=== PATIENT | male | born 1970 | race Caucasian/White ===

== ENCOUNTER 2025-03-31 01:09 | Inpatient (IN) | payer OTHER, SELFPAY ==
[2025-03-30 17:55] VITALS: BP 138/96
[2025-03-30 18:18] LABS: % Basophils 0.4 % (0-2); % Eosinophils 2.3 % (0-6); % Immature Granulocytes 0.4 % (0-0.5); % Lymphocytes 13.5 % (20.5-51.1); % Monocytes 9.3 % (1.7-9.3); % Neutrophils 74.1 % (42.2-75.2); Absolute Basophils 0.1 10^3/uL (0-0.2); Absolute Eosinophils 0.4 10^3/uL (0-0.7); Absolute Immature Granulocytes 0.1 10^3/uL (0-0.05); Absolute Lymphocytes 2.2 10^3/uL (1.2-3.4); Absolute Monocytes 1.5 10^3/uL (0.1-0.6); Absolute Neutrophils 12.1 10^3/uL (1.4-6.5); Hematocrit 41.8 % (39.0-52.0); Hemoglobin 14.4 g/dL (13.0-18.0); Mean Corp Hgb Conc. 34.4 g/dL (33.0-37.0); Mean Corpuscular Hgb 31.2 pg (27.0-31.0); Mean Corpuscular Volume 90.5 fL (80.0-94.0); Mean Platelet Volume 9.6 fL (7.4-10.4); Nucleated Red Blood Cells % 0 % (-); Platelet Count 345 10^3/uL (130-400); Red Blood Cell Count 4.62 10^6/uL (4.70-6.10); Red Cell Dist. Width 12.4 % (11.5-14.5); White Blood Cell Count 16.3 10^3/uL (4.8-10.8)
[2025-03-30 18:30] LABS: ALT (SGPT) 21 U/L (0-50); AST (SGOT) 21 U/L (17-59); Albumin 4.4 g/dl (3.5-5.0); Alkaline Phosphatase 47 U/L (38-126); Blood Urea Nitrogen 14 mg/dl (9-20); Calcium 9.6 mg/dl (8.4-10.2); Carbon Dioxide 29 mmol/L (22-30); Chloride 102 mmol/L (98-107); Glucose 104 mg/dl (70-99); Potassium 4.3 mmol/L (3.5-5.1); Sodium 140 mmol/L (135-145); Total Protein 7.2 g/dl (6.3-8.2); eGFR > 60.00
[2025-03-30 18:31] LABS: Lipase 158 U/L (23-300)
[2025-03-30 21:23] LABS: Urine Albumin 1+ (Neg - Trace); Urine Bilirubin Negative (Negative); Urine Character Slightly Cloudy (Clear); Urine Color Yellow; Urine Glucose Negative (Negative); Urine Ketone Negative (Negative); Urine Leukocyte Negative (Negative); Urine Nitrite Negative (Negative); Urine Occult Blood 3+ (Negative); Urine Specific Gravity 1.025 (<1.030); Urine Urobilinogen 1+ (Neg - 1+)
[2025-03-30 21:38] LABS: Urine Mucus Moderate
[2025-03-30 21:40] LABS: Urine Bacteria Few (Negative)
[2025-03-30 21:49] LABS: Lactic Acid 0.9 mmol/L (0.7-2.0)
--- NOTE | 2025-03-30 22:31 | ED.GENMED ---
History of Present Illness
General
Chief Complaint: Abdominal Pain
Source: patient and family
Exam Limitations: none
Time Seen by Provider: 03/30/25 22:13
History of Present Illness
History of Present Illness:
54-year-old male presents with 2 days of abdominal pain. States pain has been periumbilical. States the pain is just persisted and earlier he vomited. Also had a temperature at home at 99. Patient states the pain is just persistent and seems a
little worse toward the right side. Also reports it does radiate around bilateral flanks. No dysuria. No hematuria. Does admit to nausea.
Past History
Past History
ED Past Medical History: HTN and Psychiatric
ED Past Surgical History: Cholecystectomy and Orthopedic
Social History
Tobacco: Smoker
Alcohol: Occasional
Drug: None
Personal: Single
Living: alone
Employment: Not employed
Family History
Family History: Hypertension
Phy Exam
Physical Exam
Physical Exam:
CONSTITUTIONAL Patient alert and oriented to person, place and time. Well-appearing. Vital signs reviewed.
HEAD atraumatic, normocephalic.
EYES eyelids normal to inspection, Extraocular muscles intact, Conjunctiva normal, Sclera normal.
NECK normal range of motion, Trachea midline, no jugular venous distention.
RESPIRATORY CHEST No respiratory distress noted, Chest expansion equal
ABDOMEN moderate right lower quadrant tenderness, mild periumbilical tenderness
BACK normal inspection, no obvious deformities
UPPER EXTREMITY range of motion normal, Motor strength normal, no cyanosis, no edema.
LOWER EXTREMITY range of motion normal, Motor strength normal, no cyanosis, no edema.
NEURO Speech normal, No focal motor deficits, Ramsey coma scale 15, Memory normal, Cranial Nerves intact to screening exam.
SKIN skin warm, dry, and normal in color.
Course
Orders/Labs/Results
Orders:
Orders
03/30/25 18:01
IV Insert/Care/Rem.- Treatment PRN
Straight cath- Treatment ONCE
03/30/25 18:05
Complete Blood Count/With Diff Urgent
Comprehensive Metabolic Panel Urgent
Lipase Urgent
03/30/25 21:13
Urinalysis Reflex To Culture Urgent
Date Specimen was Collected: 03/30/25
Time Specimen was Collected: 18:01
Urine Microscopic Reflex Cult Urgent
03/30/25 21:16
CT Abd/Pel (IV only)-DH only Urgent
Comment:
Reason For Exam: abd and flank pain
03/30/25 21:30
Lactic Acid Urgent
03/30/25 22:27
Morphine Sulfate 4 mg IV NOW STA
Ondansetron Injectable [Zofran] 4 mg IV NOW STA
03/30/25 22:28
0.9% Sodium Chloride 1000 ml [Nss] 1,000 ml IV BOLUS
03/30/25 23:28
Zosyn 4.5 grams IVPB NOW Piperacillin/Tazo 4.5 Gram [Zosyn] 4.5 gram in 100 ml IV NOW
Abnormal Lab Results
03/30/25 03/30/25
18:05 21:13
WBC 16.3 H 10^3/uL
(4.8-10.8)
RBC 4.62 L 10^6/uL
(4.70-6.10)
MCH 31.2 H pg
(27.0-31.0)
Abs Immat Gran (auto) 0.1 H 10^3/uL
(0-0.05)
Absolute Neuts (auto) 12.1 H 10^3/uL
(1.4-6.5)
Absolute Monos (auto) 1.5 H 10^3/uL
(0.1-0.6)
Lymphocytes % 13.5 L %
(20.5-51.1)
Glucose 104 H mg/dl
(70-99)
Ur Occult Blood Reflex 3+ A
(Negative)
Urine RBC 7-10 A /HPF
(0-2)
Urine Bacteria (Reflex) Few A
(Negative)
Urine Albumin (Reflex) 1+ A
(Neg - Trace)
03/30/25 18:05
03/30/25 18:05
Vital Signs
Initial and Last Documented VS:
Initial Vital Signs
Temp Pulse Resp BP Pulse Ox
99.4 F 96 18 138/96 96
03/30/25 17:55 03/30/25 17:55 03/30/25 17:55 03/30/25 17:55 03/30/25 17:55
Last Documented Vital Signs
Temp Pulse Resp BP Pulse Ox
99.4 F 96 18 138/96 96
03/30/25 17:55 03/30/25 17:55 03/30/25 17:55 03/30/25 17:55 03/30/25 17:55
MDM/Problems Addressed
Differential Diagnosis Includes:
Diverticulitis, colitis, appendicitis, duodenitis, AAA
*Radiology
Radiology exam reviewed: preliminary read by ED provider (Severe labs are changed to the recall with suspected extraluminal air) and radiology read reviewed
*Pulse Oximetry
Patient hypoxic: no
*Critical Care Note
Total Time (30-74mins, 75-104mins- exclusive of procedures): Not Applicable
Data Reviewed
Source: patient and significant other
Patient Management
Discussion with other providers: Hospitalist
Escalation/DeEscalation of care consider admission/obs:
52-year-old male with abdominal pain. Found to have leukocytosis, low-grade fever and severe colitis with microperforation. Question whether this could be diverticular in nature. IV antibiotics. Admit
ED Attending Note
-
Portions of this chart may have been created with voice recognition software.� Occasional wrong word or��sound alike� substitutions may have occurred due to the inherent limitations of voice recognition software.
Discharge Plan
Departure
Patient Disposition: Admit
Date of Disposition: 03/30/25
Time of Disposition: 23:29
Admit to: Med/Surg
Presentation/result/management discussed w/ accepting MD/DO: Hospitalist
Discharge Problem:
Colitis, Perforated abdominal viscus
Prescriptions:
No Action
hydrocortisone acetate 25 MG suppository
25 mg SC BID Qty: 10 0RF
hydrocortisone 1 APPLIC cream
1 applic topical Q6H Qty: 15 0RF
Zantac 75 Tab
1 tab PO DAILY
hydrocodone-acetaminophen 1 TABLET tablet
1 tab PO Q4HPRN PRN (Reason: pain) Qty: 15 0RF
ondansetron 4 MG tablet,disintegrating
4 mg PO TIDPRN PRN (Reason: nausea/vomiting) Qty: 6 0RF
meclizine 25 MG tablet
25 mg PO Q8HPRN PRN (Reason: dizziness) Qty: 10 0RF
Referrals:
Jeff Hernandez DO [Family Provider] -
Interventions
Interventions:
*Risk Screen - Suicide Last Done: 03/30/25 17:55
*General Assessment Last Done: 03/30/25 21:02
*Neglect/Abuse Screening Last Done: 03/30/25 21:02
*ED- Fall Risk Assessment Last Done: 03/30/25 17:55
*ED COVID-19 Vaccine History Last Done: 03/30/25 17:55
Discharge Date and Time
Print Language: KINYARWANDA
[2025-03-30] MEDS: ZOFRAN 4 MG IV (23:16)
[2025-03-30] MEDS: MORPHINE SULFATE 4 MG IV (23:16)
[2025-03-30] MEDS: NSS 1000 IV (23:17)
[2025-03-30 23:24] VITALS: BP 128/81
[2025-03-31] VITALS (10 sets, daily range): BP systolic 107–142; BP diastolic 79–109; BMI 30.1; BMI 29.8
[2025-03-31] MEDS: ZOSYN 100 IV (00:17)
[2025-03-31] MEDS: FLUSH (NSS) 1 FLUSH IV (00:20)
--- NOTE | 2025-03-31 00:40 | HPS.HSE ---
Family Physician
-
Family Physician: Jeff Hernandez DO
Chief Complaint
-
Abdominal pain
History of Present Illness
This is a 54-year-old with past medical history of gallstones and irritable bowel syndrome status post cholecystectomy who presents to the emergency department with 3 days of intractable abdominal pain with associated GI symptoms.
Patient reports onset of colicky abdominal pain that he described as generally diffuse and nonradiating. It is associated with some nausea and ultimately developed into an episode of bilious emesis. Reports intermittent constipation and diarrhea.
Initially felt that this could be secondary to food poisoning and took some antacids and [id number]-[id number] medications without any significant improvement. Due to the emesis and continued pain was found to come to the emergency department by spouse.
He denies any melena. He denies any hematochezia. He denies having any fevers or chills. He has no recent travel. Denies any recent hospitalizations and denies any recent sick contacts.
In the emergency department the patient was afebrile, blood pressure was 127/90 with pulse of 76 satting 99% on room air. Tmax was 99.4.
She had a white count of 16.3, hemoglobin and platelets were normal. Electrolytes were normal. BUN/creatinine were normal.
UA was unremarkable.
CT of the abdomen pelvis shows severe acute colitis of the ascending colon with microperforation. Differential includes acute diverticulitis.
Medical History
Past Medical History
Past Medical History: Reports HTN, Hypercholesterolemia and Other (Irritable bowel syndrome, nephrolithiasis, dumping syndrome status post cholecystectomy)
Past Surgical History: Reports Cholecystectomy
Social History
Tobacco: Non-smoker
Alcohol: None
Drug: None
Personal:
Living: With Family
Family History
Family History: Not pertinent
Allergies / Home Medications
Allergies reflects when Allergies were last updated in [facility].
Home Medications with original date entered in [facility]
Allergy/Medication List:
Allergies
Allergy/AdvReac Type Severity Reaction Status Date / Time
No Known Allergies Allergy Verified 09/11/20 14:01
Home Medications
Finasteride 5 MG 1 tablet Orally Once a day for 90 days Active
Garlic 200 MG as directed Orally Active
Colestipol HCl 1 GM take 2 tablets by mouth twice a day for 30 Active
Centrum Silver 50+Men - as directed Orally Active
Review of Systems
-
History Source: Patient
Constitutional: Reports No Symptoms
EENT: Reports No Symptoms
Respiratory: Reports No Symptoms
Cardiac: Reports No Symptoms
Abdomen/GI: Reports Abdominal Pain
: Reports No Symptoms
Musculoskeletal: Reports No Symptoms
Skin: Reports No Symptoms
Neurological: Reports No Symptoms
Endocrine: Reports No Symptoms
Hematologic/Lymphatic: Reports No Symptoms
Psych: Reports No Symptoms
Physical Exam
Vital Signs
Vital Signs
Temp Pulse Resp BP Pulse Ox
99.4 F 76 21 137/90 98
03/30/25 17:55 03/31/25 00:00 03/31/25 00:00 03/31/25 00:00 03/31/25 00:00
Physical Exam
General: Well Developed, Well Nourished and Conversant
HEENT: NormoCephalic, Anicteric, Moist mucous membranes and Atraumatic
Respiratory: Clear
Cardiac: S1/S2 and Regular Rhythm
GI: Soft, Non Distended, Normal Bowel Sounds and Tender
Rectal: Deferred by Provider
Genito-urinary: Deferred by me
Musculoskeletal: No Clubbing, No Cyanosis and No Edema
Skin: Warm
Neuro: AO x 3 and Nonfocal/grossly intact
Hematologic/Lymphatic: No Lymphadenopathy
Psych: Calm
Laboratory Results
-
03/30/25 18:05
03/30/25 18:05
Laboratory Results
Lactic Acid 0.9 mmol/L (0.7-2.0) 03/30/25 21:30
Total Bilirubin 1.0 mg/dl (0.2-1.3) 03/30/25 18:05
AST 21 U/L (17-59) 03/30/25 18:05
ALT 21 U/L (0-50) 03/30/25 18:05
Alkaline Phosphatase 47 U/L (38-126) 03/30/25 18:05
Lipase 158 U/L (23-300) 03/30/25 18:05
Data Reviewed
-
CT Scan: Report Reviewed by me
Lab Data: Labs Reviewed by me
Old Records: Reviewed
Impression/Plan
-
IMPRESSION:
54-year-old with acute abdominal pain, found to have leukocytosis peripherally as well as likely diverticulitis of the ascending colon with microperforation. No abscess. No free fluid and no intra-abdominal free air. Hemodynamically stable.
Nontoxic-appearing.
PLAN:
Colitis/Diverticulitis - Complicated by microperforation but otherwise stable. Patient w/o risk factors for resistant organisms.
- admit to med/surg
- npo for now
- pain control and antiemetics
- IV ceftriaxone/flagyl
- serial examinations
- no indication for surgery at this time.
DVT PPX - heparin sq
Code status - Full Code
[2025-03-31] MEDS: TORADOL 15 MG IV (02:02)
[2025-03-31] MEDS: FLAGYL 500 MG 100 IV ×3 (06:20→22:07)
[2025-03-31] MEDS: STERILE WATER FOR INJECTION 20 ML IV (06:21)
[2025-03-31] MEDS: ROCEPHIN 2000 MG IV (06:21)
[2025-03-31] MEDS: D5LR 1000 IV (06:28)
[2025-03-31 06:44] LABS: Hematocrit 39.7 % (39.0-52.0); Hemoglobin 13.6 g/dL (13.0-18.0); Mean Corp Hgb Conc. 34.3 g/dL (33.0-37.0); Mean Corpuscular Hgb 31.6 pg (27.0-31.0); Mean Corpuscular Volume 92.3 fL (80.0-94.0); Mean Platelet Volume 9.6 fL (7.4-10.4); Platelet Count 323 10^3/uL (130-400); Red Cell Dist. Width 12.6 % (11.5-14.5); White Blood Cell Count 13.3 10^3/uL (4.8-10.8)
[2025-03-31 07:00] LABS: Blood Urea Nitrogen 15 mg/dl (9-20); Carbon Dioxide 29 mmol/L (22-30); Chloride 104 mmol/L (98-107); Estimated Creatinine Clearance 91 ml/min; Glucose 106 mg/dl (70-99); Sodium 142 mmol/L (135-145); eGFR > 60.00
[2025-03-31] MEDS: PROSCAR 5 MG PO (07:58)
[2025-03-31] MEDS: ZOFRAN 4 MG IV (08:03)
[2025-03-31] MEDS: MORPHINE SULFATE 2 MG IV ×3 (08:04→18:06)
--- NOTE | 2025-03-31 08:19 | W.PN.HOSP.TC ---
Today's Communication/Plan
-
see A/P
Assessment / Plan
Assessment / Plan
HPI: 54-year-old with past medical history of gallstones status post cholecystectomy and irritable bowel syndrome who presented to the emergency department with 3 days of intractable abdominal pain with associated GI symptoms.
Patient reports onset of colicky abdominal pain that he described as generally diffuse and nonradiating. It is associated with some nausea and ultimately developed into an episode of bilious emesis. Reports intermittent constipation and diarrhea.
Initially felt that this could be secondary to food poisoning and took some antacids and uxox-zhc-ymyoqcu medications without any significant improvement.
He denies any melena/hematochezia. He denies having any fevers or chills. He has no recent travel. Denies any recent hospitalizations and denies any recent sick contacts.
CT of the abdomen pelvis shows severe acute colitis of the ascending colon with microperforation. Differential includes acute diverticulitis.
A/P:
# Acute ascending colitis/Diverticulitis with microperforation
NPO for now with IVF support
pain control and antiemetics
Cont IV ceftriaxone/flagyl
IV PPI for GI ppx
CRS CS
Recc C scope in 4-6 weeks, pt informed
# history of gallstones
# status post cholecystectomy
# irritable bowel syndrome
DVT PPX - lovenox SQ
Code status - Full Code
Anticipated Discharge: 24 - 48 hours
Subjective/Interval History
-
Date of Service: March 31, 2025
Objective Data
-
Labs:
Laboratory Results
03/31/25
06:36
WBC 13.3 H
Hgb 13.6
Hct 39.7
Plt Count 323
Sodium 142
Potassium 5.0
Chloride 104
Carbon Dioxide 29
BUN 15
Creatinine 1.0
Glucose 106 H
Calcium 9.0
Vital Signs:
Vital Signs
Temp Pulse Resp BP Pulse Ox
37.4 C 62 18 119/80 98
03/30/25 17:55 03/31/25 08:12 03/31/25 08:12 03/31/25 08:12 03/31/25 08:12
Review of Systems
-
Abdomen/GI: Reports Abdominal Pain (improved)
Physical Exam
-
General: Well Developed, Well Nourished, No Apparent Distress, Comfortable and Conversant; Negative Respiratory Distress
HEENT: Normocephalic, Atraumatic, Nose Appears Normal and Ears Appear Normal; Negative Oxygen
Respiratory: Clear to Auscultation and Non Labored Respirations; Negative Accessory Resp Muscle Use
Cardiac: Regular Rhythm and S1/S2
GI: Soft, Nontender, Nondistended and Normal Bowel Sounds (diminished)
Skin: Warm and Dry
Neuro: Awake, Alert, Oriented and AO x 3
Psych: Calm and Intact Judgement/Insight
Data Reviewed
-
CT Scan: Report Reviewed by me
Labs: Labs Reviewed by me
[2025-03-31] MEDS: PROTONIX IV 40 MG IV (09:44)
--- NOTE | 2025-03-31 14:03 | CON.CRS ---
Consultation
-
Date/Time Consultation Performed: 03/31/25 1145
Medical History
-
Chief Complaint: abdominal pain
History of Present Illness:
Mr Olvera is a 54 yo male with a h/o HLD and cholecystectomy who presents with 4 days of lower abdominal pain. He notes that his pain began on Wednesday and has gradually worsened since that time. Yesterday, it became quite severe and was
accompanied by nausea and vomiting causing him to present through the ED at the urging of his spouse. He reports several episodes of diarrhea and well as bilious emesis. He denies fevers or chills. He denies voiding changes.
Past Medical History
Past Medical History: Hypercholesterolemia and Other (BPH)
Past Surgical History: Cholecystectomy and Other (colonoscopy 5 years ago with reported polyp and internal hemorrhoids)
Social History
Tobacco: Non-Smoker
Alcohol: Occasional
Personal:
Living: With Family
Employment: Employed
Family History
Family History: Reviewed & Not Pertinent
Allergies / Home Medications
Allergy/AdvReac Type Severity Reaction Status Date / Time
No Known Allergies Allergy Verified 09/11/20 14:01
�Medication �Instructions �Recorded �Confirmed �Type
Zantac 75 1 tab PO DAILY 11/19/15 11/19/15 History
hydrocodone 5 mg-acetaminophen 325 1 tab PO Q4HPRN PRN pain #15 tabs 11/19/15 Rx
mg tablet
hydrocortisone 2.5 % topical cream 1 applic topical Q6H ##15 11/19/15 Rx
hydrocortisone acetate 25 mg 25 mg LA BID #10 supp 11/19/15 Rx
rectal suppository
meclizine 25 mg tablet 25 mg PO Q8HPRN PRN dizziness #10 09/11/20 Rx
tabs
ondansetron 4 mg disintegrating 4 mg PO TIDPRN PRN nausea/vomiting 09/11/20 Rx
tablet #6 tabs
Review of Systems
-
History Source: Patient
All other systems: Negative unless noted
A 10 point review of systems was completed, and was negative except as per HPI.
Physical Exam
Vital Signs
Temp 99.4 F 03/30/25 17:55
Pulse 62 03/31/25 08:12
Resp Rate 18 03/31/25 08:12
Blood pressure 119/80 03/31/25 08:12
SaO2 98 03/31/25 08:12
03/30/25 03/31/25 04/01/25
06:59 06:59 06:59
Actual Weight 86.9 kg
Body Mass Index (BMI) 30.1
Lab Results / Allergies
03/31/25 06:36
03/31/25 06:36
WBC 13.3 10^3/uL (4.8-10.8) H 03/31/25 06:36
Hgb 13.6 g/dL (13.0-18.0) 03/31/25 06:36
Hct 39.7 % (39.0-52.0) 03/31/25 06:36
Plt Count 323 10^3/uL (130-400) 03/31/25 06:36
Abs Immat Gran (auto) 0.1 10^3/uL (0-0.05) H 03/30/25 18:05
Neutrophils % 74.1 % (42.2-75.2) 03/30/25 18:05
Allergy/AdvReac Type Severity Reaction Status Date / Time
No Known Allergies Allergy Verified 09/11/20 14:01
Physical Exam
General: Well Developed and Well Nourished
HEENT: Moist Mucous Membranes
Respiratory: Non Labored Respirations
GI: Soft, Non Distended, Tender (right hemiabdomen) and Obese
Skin: Warm and Dry
Neuro: Awake, Alert and AO x 3
Psych: Calm
Data Reviewed
-
CT Scan: Image Personally Visualized and interpreted, Report Reviewed by me, Discussed with Physician and Discussed with Patient
Labs: Labs Reviewed by me, Discussed with Physician and Discussed with Patient
Assessment / Plan
-
54 yo male presenting with abd pain x4 days with progressive worsening and development of n/v/d. Afebrile. VSS. Leukocytosis present on admission of 16.3 now trended down to 13.3. Reports last colonoscopy was 5 years ago with polyp/hemorroids. No
h/o IBD. CT imaging from this presentation reviewed with suspected diverticulitis with microperforation vs colitis (?infectious) to the ascending colon. No abscess.
--NPO this am, ok for CLD for dinner
--Will check stool cultures and c-diff
--Continue IV abx (ceftriaxone/flagyl)
--Continue IVF
--Analgesics prn
--VTE ppx with heparin SQ
No plans for emergent surgery at this time, will follow expectantly with nonoperative measures for improvement. May require operative intervention if condition worsens. Surgery to follow.
[2025-03-31] MEDS: NSS (PRESERVATIVE FREE) IV (14:09)
[2025-03-31] MEDS: D5LR IV (15:33)
--- NOTE | 2025-03-31 15:43 | PTCARENOTE ---
rec'd pt from ER. pt ambulated from stretcher to bed. Denies pain at this time. D5LR infusing at 100ml/hr as ordered. Oriented to unit. Call bloom in reach.
[2025-03-31] MEDS: LOVENOX 40 MG SC (18:04)
[2025-04-01] MEDS: D5LR 1000 IV (00:52)
[2025-04-01] MEDS: ROCEPHIN 2000 MG IV (05:44)
[2025-04-01] MEDS: STERILE WATER FOR INJECTION 20 ML IV (05:44)
[2025-04-01] MEDS: FLAGYL 500 MG 100 IV (05:45)
[2025-04-01 07:00] VITALS: BP 137/89
[2025-04-01] MEDS: PROTONIX IV 40 MG IV (07:32)
[2025-04-01] MEDS: NSS (PRESERVATIVE FREE) 10 ML IV (07:32)
[2025-04-01] MEDS: PROSCAR 5 MG PO (07:34)
[2025-04-01 07:46] LABS: % Basophils 0.8 % (0-2); % Eosinophils 8.3 % (0-6); % Immature Granulocytes 0.3 % (0-0.5); % Lymphocytes 21.9 % (20.5-51.1); % Monocytes 9.2 % (1.7-9.3); % Neutrophils 59.5 % (42.2-75.2); Absolute Basophils 0.1 10^3/uL (0-0.2); Absolute Eosinophils 0.7 10^3/uL (0-0.7); Absolute Lymphocytes 1.7 10^3/uL (1.2-3.4); Absolute Monocytes 0.7 10^3/uL (0.1-0.6); Absolute Neutrophils 4.7 10^3/uL (1.4-6.5); Hematocrit 37.9 % (39.0-52.0); Hemoglobin 13.3 g/dL (13.0-18.0); Mean Corp Hgb Conc. 35.1 g/dL (33.0-37.0); Mean Corpuscular Hgb 31.5 pg (27.0-31.0); Mean Corpuscular Volume 89.8 fL (80.0-94.0); Mean Platelet Volume 9.7 fL (7.4-10.4); Nucleated Red Blood Cells % 0 % (-); Platelet Count 351 10^3/uL (130-400); Red Blood Cell Count 4.22 10^6/uL (4.70-6.10); Red Cell Dist. Width 12.2 % (11.5-14.5); White Blood Cell Count 7.9 10^3/uL (4.8-10.8)
[2025-04-01 08:42] LABS: Blood Urea Nitrogen 8 mg/dl (9-20); Carbon Dioxide 29 mmol/L (22-30); Chloride 105 mmol/L (98-107); Estimated Creatinine Clearance 101 ml/min; Glucose 104 mg/dl (70-99); Magnesium 2.1 mg/dl (1.6-2.3); Potassium 4.2 mmol/L (3.5-5.1); Sodium 138 mmol/L (135-145); eGFR > 60.00
[2025-04-01] MEDS: D5LR IV (10:54)
--- NOTE | 2025-04-01 11:03 | W.PN.CRS1 ---
Addendum entered and electronically signed by Oniel Galarza MD 04/01/25 17:08:
I saw and examined the patient.
The SKIRT PANEL ASSEMBLER's note was reviewed and I agree with the note.
Original Note:
Today's Communication / Plan
-
Advance diet, dispo planning
Assessment/Plan
-
54 yo male presenting with right-sided colitis, most consistent with diverticulitis with microperforation
Afebrile, VSS
Leukocytosis resolved, CRP trending down
Tolerating liquids
Pain nearly resolved, minimal tenderness
--Advance to regular diet
--Analgesics prn
--Continue with ABX, transition to PO upon dc
Ok for d/c from surgical standpoint if tolerating regular diet
Subjective Data
Subjective Data
Date of Service: April 01, 2025
Patient seen and examined at bedside with Dr. Galarza. Denies n/v. Tolerating liquids. Pain much improved, nearly resolved. Passed a soft, normal stool.
Objective Data
-
Vital Signs
Temp Pulse Resp BP Pulse Ox
97.9 F 69 16 137/89 97
04/01/25 07:00 04/01/25 07:00 04/01/25 07:00 04/01/25 07:00 04/01/25 07:00
Intake & Output
03/31/25 04/01/25 04/02/25
06:59 06:59 06:59
Intake Total 1800 / 1800
Output Total 300 / 300
Balance 1500 / 1500
Intake:
Oral fluids 600 / 600
IV fluids (Total) 1000 / 1000
IV piggybacks 200 / 200
Output:
Urine, Voided 300 / 300
Other:
Number of approximated MODERATE 1
amounts of urine
Lab Results
04/01/25 07:03
04/01/25 07:03
Physical Exam
-
General: No Acute Distress
Abdomen: Soft, Non Distended and Tender (mild to right mid to upper abd)
Skin: Warm and Dry
--- NOTE | 2025-04-01 12:56 | W.PN.HOSP.TC ---
Addendum entered and electronically signed by Michelle Caballero MD 04/01/25 14:18:
total DC time 36 min
Original Note:
Today's Communication/Plan
-
DC today
Assessment / Plan
Assessment / Plan
HPI: 54-year-old with past medical history of gallstones status post cholecystectomy and irritable bowel syndrome who presented to the emergency department with 3 days of intractable abdominal pain with associated GI symptoms.
Patient reports onset of colicky abdominal pain that he described as generally diffuse and nonradiating. It is associated with some nausea and ultimately developed into an episode of bilious emesis. Reports intermittent constipation and diarrhea.
Initially felt that this could be secondary to food poisoning and took some antacids and yrsx-sil-bmbddcq medications without any significant improvement.
He denies any melena/hematochezia. He denies having any fevers or chills. He has no recent travel. Denies any recent hospitalizations and denies any recent sick contacts.
CT of the abdomen pelvis shows severe acute colitis of the ascending colon with microperforation. Differential includes acute diverticulitis.
A/P:
# Acute ascending colitis/Diverticulitis with microperforation
restarted diet and tolerated solid food
IV ceftriaxone/flagyl -> Levaquin and Flagyl 5 more days
appreciate CRS input
Recc C scope in 4-6 weeks, pt informed
# history of gallstones
# status post cholecystectomy
# irritable bowel syndrome
DVT PPX - lovenox SQ
Code status - Full Code
DW RN
Anticipated Discharge: Today
Subjective/Interval History
-
Date of Service: April 01, 2025
Objective Data
-
Labs:
Laboratory Results
04/01/25
07:03
WBC 7.9
Hgb 13.3
Hct 37.9 L
Plt Count 351
Sodium 138
Potassium 4.2
Chloride 105
Carbon Dioxide 29
BUN 8 L
Creatinine 0.9
Glucose 104 H
Calcium 9.0
Vital Signs:
Vital Signs
Temp Pulse Resp BP Pulse Ox
36.6 C 69 16 137/89 97
04/01/25 07:00 04/01/25 07:00 04/01/25 07:00 04/01/25 07:00 04/01/25 07:00
I&O
03/31/25 04/01/25 04/02/25
06:59 06:59 06:59
Intake Total 1800 / 1800
Output Total 300 / 300
Balance 1500 / 1500
Review of Systems
-
Abdomen/GI: Reports Abdominal Pain (resolved )
Physical Exam
-
General: Well Developed, Well Nourished, No Apparent Distress, Comfortable and Conversant; Negative Respiratory Distress
HEENT: Normocephalic, Atraumatic, Nose Appears Normal and Ears Appear Normal; Negative Oxygen
Respiratory: Clear to Auscultation and Non Labored Respirations; Negative Accessory Resp Muscle Use
Cardiac: Regular Rhythm and S1/S2
GI: Soft, Nontender, Nondistended and Normal Bowel Sounds
Skin: Warm and Dry
Neuro: Awake, Alert, Oriented and AO x 3
Psych: Calm and Intact Judgement/Insight
Data Reviewed
-
CT Scan: Report Reviewed by me
Labs: Labs Reviewed by me
[2025-04-01 13:00] VITALS: BP 143/89
--- NOTE | 2025-04-01 13:39 | CM ---
CM reviewed chart, reviewed with nursing, patient for discharge, plan home no needs.
Plan; home no needs.
--- NOTE | 2025-04-01 14:08 | W.DCSUMMARY ---
Discharge Summary
Discharge Data
Date of Admission: 03/31/25
Date of Discharge: 04/01/25
-
Pending Results: No
Hospital Course
Principal Diagnosis:
Acute ascending colitis/Diverticulitis with microperforation
Chronic Diagnoses:�
History of gallstones
Status post cholecystectomy
Irritable bowel syndrome
Consultations:�
Colorectal surgery
Procedures:�
None
Clinical course:�
This is a 54-year-old with past medical history as stated above, who presented with abdominal pain, some nausea and one episode of bilious emesis.
Problem 1:
Acute ascending colitis/Diverticulitis with microperforation.
He was initially made n.p.o., but diet was slowly added back.
He was able to tolerate solid food prior to discharge which he can continue going forward.
The patient received IV antibiotics Flagyl and ceftriaxone while in the hospital, and he was discharged with Levaquin and Flagyl for 5 more days (total 7 days).
He can follow up with colorectal surgery service outpatient for C-scope in 4 to 6 weeks.
As for the rest of his medical problems, they were stable during his hospital stay.
Discharge Plan
-
Patient Disposition: Home (Routine Discharge)
Discharge Diagnosis/Procedures: Acute ascending colitis/Diverticulitis with microperforation
Condition: Good
Diet: As tolerated and Regular
Activity: As tolerated
Driving Restrictions: As prior to admission
Activity Restrictions/Additional Instructions:
C scope in 4-6 weeks
Referrals:
Jeff Hernandez DO [Family Provider] - in less than 1 week
Oniel Galarza MD [Active] - in two to four weeks
Additional Discharge Medication Instructions: take antibiotics with probiotic
Prescriptions:
New
metronidazole 500 mg tablet
500 mg PO Q8H 5 Days Qty: 15 0RF
levofloxacin 750 mg tablet
750 mg PO DAILY 5 Days Qty: 5 0RF
Continued
finasteride
5 mg PO DAILY
Discharge Orders:
Discharge Patient (As Directed); Ordered 04/01/25
Ordered By: Michelle Caballero
Discharge Date and Time
Discharge Date/Time: 04/01/25 13:14
Print Language: [email or web address]
== END 2025-04-01 13:14 | disposition home or self-care (01) | DRG 392 ==
LOC: 4 WEST ACU 01:09
PROVIDERS: Student in an Organized Health Care Education/Training Program; ADMITTING PHYSICIAN Internal Medicine; ATTENDING PHYSICIAN Internal Medicine; CONSULT PHYSICIAN Surgery; EMERGENCY PHYSICIAN Emergency Medicine; FAMILY PHYSICIAN Family Medicine
DX: K57.20 Diverticulitis of large intestine with perforation and abscess without bleeding (principal); F17.210 Nicotine dependence, cigarettes, uncomplicated; I10 Essential (primary) hypertension; E78.00 Pure hypercholesterolemia, unspecified; K58.8 Other irritable bowel syndrome; N40.0 Benign prostatic hyperplasia without lower urinary tract symptoms; Z90.49 Acquired absence of other specified parts of digestive tract
CPT/HCPCS: 74177; 80048; 80053; 81003; 81015; 83605; 83690; 83735; 85025; 85027; 86140; 96361; 96365; 96375; 99284; Q9967